=== PATIENT | female | born 1985 | race Asian ===

== ENCOUNTER 2021-10-02 01:29 | Inpatient (IN) ==
[2021-10-02] MEDS ORDERED: OXYTOCIN 30 UNITS/500 ML BAG IV PRN ×3 (02:02→10:49)
[2021-10-02] MEDS: LACTATED RINGER'S 1,000 ML IV PRN ×3 (02:24→07:49)
[2021-10-02 02:36] LABS: Hemoglobin 11.5 g/dl (12.0-16.0); Mean Corpuscular Hemoglobin 31.2 pg (25.0-34.0); Mean Corpuscular Hgb Conc 31.9 g/dL (32.0-36.0); Mean Corpuscular Volume 97.6 fL (80.0-100.0); Mean Platelet Volume 10.8 fL (9.4-12.3); Platelet Count 155 K/uL (130-400); RDW Coefficient of Variation 15.3 % (11.5-14.5); RDW Standard Deviation 54.5 fL (36.4-46.3); Red Blood Count 3.69 M/uL (3.93-5.22); White Blood Count 6.91 K/ul (4.8-10.8)
[2021-10-02] MEDS ORDERED: fentaNYL citrate 100 MCG/2 ML VIAL ONE (02:50)
[2021-10-02] MEDS ORDERED: BUPIVACAINE 0.25% 30 ML VIAL ONE (02:50)
[2021-10-02] MEDS ORDERED: ePHEDrine sulfate 50 MG/ML AMP ONE (02:50)
[2021-10-02] MEDS ORDERED: LIDOCAINE 2%/EPINEPHRINE 1:200,000 20 ML SDV ONE (02:50)
[2021-10-02] MEDS ORDERED: SODIUM CHLORIDE 0.9% INJ 10 ML VIAL ONE (02:50)
[2021-10-02] MEDS ORDERED: fentaNYL 2MCG/ML ROPIVACAINE 1.25MG/ML 100 ML BAG EPI ONE (02:51)
[2021-10-02] MEDS ORDERED: NALOXONE HCL 1 MG in SODIUM CHLORIDE 0.9% 1000ML 1,000 ML IV PRN (03:13)
[2021-10-02] MEDS ORDERED: diphenhydrAMINE 50 MG/ML VIAL IV PRN (03:13)
[2021-10-02] MEDS ORDERED: NALOXONE HCL 0.4 MG/1 ML VIAL/CARP IV PRN (03:13)
[2021-10-02] MEDS ORDERED: NALBUPHINE HCL INJ 10 MG/ML AMP IV PRN (03:13)
[2021-10-02] MEDS ORDERED: ONDANSETRON INJ 2 MG/ML 2 ML VIAL IV PRN (03:13)
[2021-10-02] MEDS ORDERED: fentaNYL 2MCG/ML ROPIVACAINE 1.25MG/ML 100 ML BAG EPI PRN (03:13)
[2021-10-02] MEDS ORDERED: ePHEDrine sulfate 50 MG/ML AMP IV PRN (03:13)
--- NOTE | 2021-10-02 03:13 | Anesthesiology Consultation ---
Date of Service October 02, 2021 Assessment & Plan ASA ASA2 Proposed Anesthesia Anesthesia Type: Labor Epidural Risk / Benefits Reviewed With: PT / POA / Parent / Guardian, Accepts Plan and Informed Consent Obtained History Height/Weight Height: 5 ft 2.99 in Weight: 71.668 kg Allergies Allergy/AdvReac Type Severity Reaction Status Date / Time No Known Allergies Allergy Unverified 08/09/13 02:26 Medications Home Medications Medication Instructions Recorded Confirmed Last Taken Multivit/Min/Iron/Fol Ac/Pren 1 tab PO DAILY #0 tabs 08/09/13 10/02/21 Unknown ( Vitamin) Active Medications Generic Name Dose Route Start Last Admin Trade Name Freq PRN Reason Stop Dose Admin Lactated Ringer's 1,000 mls @ 125 mls/hr 10/02/21 02:02 10/02/21 02:24 Lr IV 10/04/21 02:01 999 mls/hr .Q8H PRN Administration L&D Protocol Protocol Exercise / Class Metabolic Activity II 4-5 Yardwork/Stairs/Walk up hill Past Anesthesia History No Hx of Anesthesia Complications and No Family Hx of Anesthesia Complications History of PONV No Hx of PONV and No Hx of Motion Sickness Social History Smoking Status: Never smoker Hx Alcohol Use: No Hx Substance Use: No Review of Systems denies fever/cough/ colds/ chest pain/ SOB/ SUZANNA denies SUZANNA Physical Exam Vital Signs Last Vital Signs Temp 36.8 C 10/02/21 02:04 Pulse 89 10/02/21 01:48 Resp 18 10/02/21 02:04 BP 123/73 10/02/21 01:48 ENMT Mouth: no TMJ abnormality and no dentition abnormality Thyromental Distance: > or= 3.5 Finger Breadths Mallampati Class: II Neck neck extension not limited Respiratory normal respiratory effort; no respiratory distress Auscultation: lungs clear to auscultation bilaterally Cardiovascular Rate/Rhythm: regular rate and regular rhythm Neurologic moves all extremities Psychiatric Orientation: alert and oriented x 3 Testing Laboratory Results 10/02/21 02:11
--- NOTE | 2021-10-02 06:25 | History & Physical Report ---
Date of Service October 02, 2021 Assessment & Plan Admission and Anticipated Discharge Date Admission Date: October 02, 2021 History of Present Illness Chief Complaint: rupture of membranes Primary Care Provider: NO PCP 35 F [id number] at 38.5 admitted with SROM and early labor Allergies Allergy/AdvReac Type Severity Reaction Status Date / Time No Known Allergies Allergy Unverified 08/09/13 02:26 Home Medications Medication Instructions Recorded Confirmed Type Multivit/Min/Iron/Fol Ac/Pren 1 tab PO DAILY #0 tabs 08/09/13 10/02/21 History ( Vitamin) Patient History Social History Smoking Status: Never smoker Hx Alcohol Use: No Hx Substance Use: No Preferred Language: Italian [employer] Worker Required: No Beliefs That Will Affect Care: None marital status: Current Living Situation: Spouse and Family Other Information That Helps Us Care for You: No OB History x1 GBS is neg [employer]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 Review of Systems All systems reviewed & are unremarkable except as noted in HPI & below Physical Exam Constitutional: WD/WN, vitals as above Eyes: PERRL, conjunctivae normal, anicteric sclerae Respiratory: normal respiratory effort, lungs clear to auscultation Cardiovascular: RRR, no murmur, no edema Musculoskeletal: Extremities: extremities normal to inspection Skin: no rashes, warm and dry Neurologic: patellar DTR's 2+ bilat, sensation intact Genitourinary: Manual OB Exam: + cervical dilation 5 cm, + cervical effacement 90% and + station -1 OB Exam Monitor Tracing: + external FHT monitor used, + external uterine monitor used, + category I and + normal FHT variability Results & Data ([facility]) Vital Signs (Past 12 Hours) Vital Signs Temp Pulse Resp BP Pulse Ox 10/02/21 02:04 36.8 C 18 10/02/21 06:18 95 10/02/21 06:18 75 10/02/21 06:00 16 10/02/21 06:00 36.8 C 16 10/02/21 06:13 96 10/02/21 06:13 77 10/02/21 06:11 94 10/02/21 06:11 82 10/02/21 06:08 96 10/02/21 06:08 84 10/02/21 06:06 80 10/02/21 06:06 111/70 10/02/21 06:03 95 10/02/21 06:03 77 10/02/21 06:02 94 10/02/21 06:02 83 10/02/21 05:58 96 10/02/21 05:58 101 H 10/02/21 05:53 95 10/02/21 05:53 75 10/02/21 05:51 90 10/02/21 05:51 106/74 10/02/21 05:48 96 10/02/21 05:48 89 10/02/21 05:46 94 10/02/21 05:46 75 10/02/21 05:43 95 10/02/21 05:43 77 10/02/21 05:38 97 10/02/21 05:38 92 H 10/02/21 05:37 78 10/02/21 05:37 109/69 10/02/21 05:33 96 10/02/21 05:33 88 10/02/21 05:28 95 10/02/21 05:28 86 10/02/21 05:23 95 10/02/21 05:23 87 10/02/21 05:22 93 H 10/02/21 05:22 108/64 10/02/21 05:18 96 10/02/21 05:18 82 10/02/21 05:13 97 10/02/21 05:13 91 H 10/02/21 05:08 96 10/02/21 05:08 83 10/02/21 05:06 83 10/02/21 05:06 118/76 10/02/21 05:03 97 10/02/21 05:03 87 10/02/21 04:58 97 10/02/21 04:58 104 H 10/02/21 04:53 98 10/02/21 04:53 94 H 10/02/21 04:51 83 10/02/21 04:51 120/76 10/02/21 04:48 96 10/02/21 04:48 79 10/02/21 04:43 96 10/02/21 04:43 94 H 10/02/21 04:30 16 10/02/21 04:30 16 10/02/21 04:38 97 10/02/21 04:38 96 H 10/02/21 04:37 80 10/02/21 04:37 117/71 10/02/21 04:33 97 10/02/21 04:33 78 10/02/21 04:28 97 10/02/21 04:28 79 10/02/21 04:23 96 10/02/21 04:23 77 10/02/21 04:18 97 10/02/21 04:18 92 H 10/02/21 04:13 97 10/02/21 04:13 82 10/02/21 04:08 97 10/02/21 04:08 82 10/02/21 04:00 18 10/02/21 04:00 36.7 C 18 10/02/21 04:05 86 10/02/21 04:05 117/73 10/02/21 04:03 97 10/02/21 04:03 72 10/02/21 04:02 71 10/02/21 04:02 125/76 10/02/21 03:59 73 10/02/21 03:59 114/70 10/02/21 03:58 97 10/02/21 03:58 82 10/02/21 03:56 71 10/02/21 03:56 120/74 10/02/21 03:53 97 10/02/21 03:53 76 10/02/21 03:53 85 10/02/21 03:53 122/76 10/02/21 03:50 87 10/02/21 03:50 123/75 10/02/21 03:48 97 10/02/21 03:48 84 10/02/21 03:47 91 H 10/02/21 03:47 120/74 10/02/21 03:43 97 10/02/21 03:43 79 10/02/21 03:44 80 10/02/21 03:44 116/73 10/02/21 03:41 76 10/02/21 03:41 114/68 10/02/21 03:38 97 10/02/21 03:38 76 10/02/21 03:38 122/68 10/02/21 03:36 72 10/02/21 03:36 131/60 10/02/21 03:33 98 10/02/21 03:33 81 10/02/21 03:32 81 10/02/21 03:32 120/75 10/02/21 03:29 83 10/02/21 03:29 129/80 10/02/21 03:28 100 10/02/21 03:28 81 10/02/21 03:26 79 10/02/21 03:26 119/69 10/02/21 03:23 100 10/02/21 03:23 79 10/02/21 03:23 134/81 10/02/21 03:20 78 10/02/21 03:20 131/75 10/02/21 03:18 99 10/02/21 03:18 83 10/02/21 01:48 89 123/73 Monitoring External Monitor Cat 1
[2021-10-02] MEDS ORDERED: METHYLERGONOVINE MALEATE 0.2 MG/ML AMP ONE (10:18)
[2021-10-02] MEDS ORDERED: miSOPROStoL 200 MCG TAB ONE (10:36)
[2021-10-02] MEDS ORDERED: DIPHTHERIA/TETANUS/PERTUSSIS 0.5 ML SYR/VIAL IM ONE (10:49)
[2021-10-02] MEDS ORDERED: BENZOCAINE 20% AER SPR 82.5 GM CAN EXT PRN (10:49)
[2021-10-02] MEDS ORDERED: HYDROCORTISONE ACETATE 25 MG SUPP PR PRN (10:49)
[2021-10-02] MEDS ORDERED: METHYLERGONOVINE MALEATE 0.2 MG/ML AMP IM ONE (10:49)
[2021-10-02] MEDS ORDERED: miSOPROStoL 200 MCG TAB PR ONE (10:49)
[2021-10-02] MEDS ORDERED: bisacodyL 10 MG SUPP PR PRN (10:49)
[2021-10-02 10:59] LABS: Base Excess Cord Arterial Bld 0.1 mEq/L (-9-1.8); CO2 Cord Arterial Blood 60 mmHg (39.1-73.5); HCO3 Cord Arterial Blood 28 mmol/L (19.7-28.5); Oxygen Sat Cord Arterial Blood < 60.0 % (<60); PO2 Cord Arterial Blood 12 mmHg (4.1-31.7); pH Cord Arterial Blood 7.28 (7.1-7.38)
[2021-10-02 11:01] LABS: Base Excess Cord Venous Blood -0.8 mEq/L (-7.7-1.9); Cord Venous Blood HCO3 25 mmol/L (18.4-26.8); Cord Venous Blood PCO2 44 mmHg (30.4-57.2); Cord Venous Blood PO2 34 mmHg (14.1-43.3); Cord Venous Blood pH 7.36 (7.20-7.44); O2 Saturation Cord Venous Bld 75.9 % (<68)
--- NOTE | 2021-10-02 11:37 | Delivery Summary ---
The patient delivered a live in left occiput anterior presentation. There was nuchal cord, wh ich was easily reduced. Infant was delivered. Delayed cord clamp was performed for 1 minute. Cord gases and cord blood was obtained. Placenta was spontaneously delivered. Inspection of the placenta shows a 3-vessel cord. Placenta otherwise appears grossly normal. Inspection of the perineum showe d a second-degree midline laceration. Laceration was repaired with 2-0 Vicryl in layers. There was good hemostasis post repair. Rectal exam post-repair showed good sphincter tone. Estimated blood loss is 450 mL. The patient is doing well. Baby and mother are in recovery. Infant 's weight is pending, Apgars 7 and 9. All instruments were removed from the vagina and accounted for x2 including sponges, needles, and ret ractors. Job ID: [id number]
[2021-10-02] MEDS: IBUPROFEN 600 MG TAB PO PRN ×2 (11:43→21:45)
[2021-10-02] MEDS: ACETAMINOPHEN 325 MG TAB PO PRN (12:43)
--- NOTE | 2021-10-02 12:48 | Anesthesia Procedure Note ---
Date of Service October 02, 2021 Anesthesia Post Epidural Note Vital Signs Vital Signs: Temp Pulse Resp BP Pulse Ox 38.3 C H 93 H 20 108/55 L 94 10/02/21 12:35 10/02/21 12:36 10/02/21 12:35 10/02/21 12:36 10/02/21 10:36 Pain Intensity Abdomen: Pain Intensity: 5 Head: Pain Intensity: 6 Notes Mental Status: alert / awake / arousable Nausea / Vomiting: adequately controlled Pain: adequately controlled Airway Patency, RR, SpO2: stable & adequate BP & HR: stable & adequate Hydration State: stable & adequate Neuraxial Anesthesia: was administered and sensory block is resolving Anesthetic Complications: no major complications apparent and Pt Satisfied with anesthetic care Epidural: Removed without complications and With tip intact
[2021-10-02] MEDS: DOCUSATE SODIUM 100 MG CAP PO SCH (20:25)
[2021-10-03] MEDS: ACETAMINOPHEN 325 MG TAB PO PRN (00:11)
[2021-10-03 06:27] LABS: Hematocrit (blood only) 32.5 % (34.1-44.9); Hemoglobin 10.6 g/dl (12.0-16.0); Mean Corpuscular Hemoglobin 31.6 pg (25.0-34.0); Mean Corpuscular Hgb Conc 32.6 g/dL (32.0-36.0); Mean Platelet Volume 10.5 fL (9.4-12.3); Platelet Count 116 K/uL (130-400); RDW Coefficient of Variation 15.3 % (11.5-14.5); RDW Standard Deviation 54.4 fL (36.4-46.3); Red Blood Count 3.35 M/uL (3.93-5.22); White Blood Count 8.14 K/ul (4.8-10.8)
[2021-10-03] MEDS ORDERED: PRENATAL VITAMIN 1 TAB PO SCH (08:00)
[2021-10-03] MEDS: IBUPROFEN 600 MG TAB PO PRN (08:01)
[2021-10-03] MEDS: DOCUSATE SODIUM 100 MG CAP PO SCH (08:01)
--- NOTE | 2021-10-03 10:22 | Obstetrical Progress Note ---
Date of Service October 03, 2021 Subjective Ambulation: ambulating normally Voiding: no voiding problems Passing Gas:: Yes Diet Tolerance:: regular diet Lochia:: Small Feeding Type:: breast feeding Current Pain Level(1-10): 0 doing well Physical Exam Constitutional WD/WN, vitals as above Gastrointestinal (Abdomen) Inspection/Auscultation: abdomen normal to inspection abdomen soft and non-tender fundus firm below U Musculoskeletal Extremities: extremities normal to inspection no edema. neg dawn's Skin no rashes, warm and dry Neurologic patellar DTR's 2+ bilat, sensation intact Psychiatric A+Ox3, euthymic affect Results & Data ([facility]) Vital Signs (Past 12 Hours) Vital Signs Temp Pulse Resp BP Pulse Ox O2 Del Method 10/03/21 08:00 36.6 C 70 18 100/68 Room Air 10/03/21 02:58 36.8 C 89 16 105/71 97 Room Air 10/02/21 22:55 36.8 C 70 16 102/69 97 Room Air Laboratory Results Laboratory Results - last 72 hr 10/02/21 10/02/21 10/02/21 02:00 02:11 10:13 WBC 6.91 RBC 3.69 L Hgb 11.5 L Hct 36.0 MCV 97.6 MCH 31.2 MCHC 31.9 L RDW Std Deviation 54.5 H RDW Coeff of Jesus 15.3 H Plt Count 155 MPV 10.8 Cord ABG pH Cord ABG pCO2 Cord ABG pO2 Cord ABG HCO3 Cord ABG Base Excess Cord ABG O2 Sat Cord VBG pH 7.36 Cord VBG pCO2 44 Cord VBG pO2 34 Cord VBG HCO3 25 Cord VBG Base Excess -0.8 Cord VBG O2 Sat 75.9 H Blood Gas Comments CASH SARS-CoV-2, RNA, NAAT NEGATIVE 10/02/21 10/03/21 10:13 06:10 WBC 8.14 RBC 3.35 L Hgb 10.6 L Hct 32.5 L MCV 97.0 MCH 31.6 MCHC 32.6 RDW Std Deviation 54.4 H RDW Coeff of Jesus 15.3 H Plt Count 116 L MPV 10.5 Cord ABG pH 7.28 Cord ABG pCO2 60 Cord ABG pO2 12 Cord ABG HCO3 28 Cord ABG Base Excess 0.1 Cord ABG O2 Sat < 60.0 Cord VBG pH Cord VBG pCO2 Cord VBG pO2 Cord VBG HCO3 Cord VBG Base Excess Cord VBG O2 Sat Blood Gas Comments CASH SARS-CoV-2, RNA, NAAT
[2021-10-03] MEDS ORDERED: bisacodyL 5 MG TABEC PO SCH (20:00)
== END 2021-10-03 13:20 | disposition home or self-care (01) | DRG 807 ==
LOC: OPB 01:29 → 4S1 01:32 → 4E2 13:38